=== PATIENT | female | born 1990 | race Caucasian/White ===

== ENCOUNTER 2017-11-09 05:46 | Observation (INO) | payer OTHER ==
[~2017-11-09 05:46] MED LIST: ESTROGENS, CONJ VAGINAL CREAM 30GM TUBE.; LIDOCAINE 1%/EPI 1:100,000 20 ML VIAL.; METHYLENE BLUE 1% 10 ML VIAL.; SURGICEL HEMOSTAT 4X8 EACH.
[2017-11-09] MEDS: IV RINGERS,LACTATED 1000ML 1,000 ML IV ×2 (06:33→10:39)
[2017-11-09 06:56] LABS: ADD MAN DIFF? NO
[2017-11-09 06:57] LABS: BASO % 1 % (0-3); EOS % 0 % (0-3); HEMATOCRIT 42.2 % (36.0-47.0); HEMOGLOBIN 14.3 g/dL (12.0-15.5); LYMPH # 1.4 x10^3/uL (1.0-4.8); LYMPH % 34 % (24-48); MEAN CORPUSCULAR HEMOGLOBIN 29 pg (25-35); MEAN CORPUSCULAR HGB CONC 34 g/dL (31-37); MEAN CORPUSCULAR VOLUME 84 fL (79-100); MONO # 0.3 x10^3/uL (0.0-1.1); MONO % 7 % (0-9); NEUT # 2.5 x10^3uL (1.8-7.7); NEUT % 59 % (31-73); PLATELET COUNT 148 x10^3/uL (140-400); RED BLOOD COUNT 5.02 x10^6/uL (3.50-5.40); RED CELL DISTRIBUTION WIDTH 14.3 % (11.5-14.5); WHITE BLOOD COUNT 4.3 x10^3/uL (4.0-11.0)
[2017-11-09] MEDS ORDERED: fentaNYL PF VIAL 100 MCG/2 ML VIAL IV (07:00)
[2017-11-09] MEDS ORDERED: LIDOCAINE 1% PF 2 ML VIAL. ID (07:00)
[2017-11-09] MEDS ORDERED: MORPHINE SULFATE 4 MG/ML DISP.SYRIN. IV (07:00)
[2017-11-09] MEDS ORDERED: SCOPOLAMINE 1.5MG PATCH. TD ×2 (07:08→07:15)
[2017-11-09] MEDS ORDERED: SEVOFLURANE > 120 MINUTES. IH (07:26)
[2017-11-09] MEDS ORDERED: GLYCOPYRROLATE 1 MG/5 ML VIAL. (07:27)
[2017-11-09] MEDS ORDERED: NEOSTIGMINE METHYLSULFATE 5 MG/5 ML SYRINGE. (07:27)
[2017-11-09] MEDS ORDERED: ROCURONIUM 50 MG/5 ML VIAL. ×2 (07:27→09:04)
[2017-11-09] MEDS ORDERED: fentaNYL PF VIAL 100 MCG/2 ML VIAL ×3 (07:27→10:11)
[2017-11-09] MEDS ORDERED: MIDAZOLAM HCL/PF 2 MG/2 ML VIAL. (07:27)
[2017-11-09] MEDS ORDERED: KETOROLAC 30 MG/ML INJ FOR OR. INJ (07:28)
[2017-11-09] MEDS ORDERED: LIDOCAINE 2% PF Vial for OR 5 ML VIAL. (07:28)
[2017-11-09] MEDS ORDERED: DEXAMETHASONE SOD PHOS 20 MG/5 ML VIAL. (07:28)
[2017-11-09] MEDS ORDERED: ONDANSETRON PF 4 MG/2 ML VIAL. (07:28)
[2017-11-09] MEDS ORDERED: PROPOFOL 20 ML IV (07:28)
[2017-11-09 08:00] LABS: NEG OBC UR NEG; POS OBC UR POS; U PREG PATIENT NEGATIVE (NEG)
[2017-11-09] MEDS: BUPIVACAINE-EPI 0.25%-1:200000 50 ML VIAL. (08:49)
[2017-11-09] MEDS ORDERED: 0.9 % SODIUM CHLORIDE 10 ML DISP.SYRIN. IV (10:00)
[2017-11-09] MEDS ORDERED: diphenhydrAMINE HCL 25 MG CAPSULE PO (10:00)
[2017-11-09] MEDS ORDERED: DEXTROSE 50% 25 GM / 50ML DISP.SYRIN. IV (10:00)
[2017-11-09] MEDS ORDERED: diphenhydrAMINE 50 MG/ML VIAL IV (10:00)
[2017-11-09] MEDS ORDERED: PROCHLORPERAZINE 10 MG/2 ML VIAL. IV (10:00)
[2017-11-09] MEDS ORDERED: ZOLPIDEM 5 MG TABLET. PO (10:00)
[2017-11-09] MEDS ORDERED: CALCIUM CARBONATE 500 MG TAB.CHEW PO (10:00)
[2017-11-09] MEDS ORDERED: PROCHLORPERAZINE 10 MG/2 ML VIAL. (10:12)
[2017-11-09] MEDS: PROCHLORPERAZINE 10 MG/2 ML VIAL. IV (10:25)
[2017-11-09] MEDS: fentaNYL PF VIAL 100 MCG/2 ML VIAL IV ×2 (10:27→10:40)
[2017-11-09] MEDS: GABAPENTIN 300 MG CAPSULE. PO ×4 (12:00→22:00)
[2017-11-09] MEDS: CALCIUM CARBONATE 500 MG TABLET PO (12:00)
[2017-11-09] MEDS ORDERED: ceFAZolin 2GM PREMIX 2 GM/50 ML BAG IV (12:00)
[2017-11-09] MEDS: SIMETHICONE 80 MG TAB.CHEW PO (12:04)
[2017-11-09] MEDS: KETOROLAC 30 MG/ML INJ. IV (12:05)
[2017-11-09] MEDS: VENLAFAXINE XR 37.5 MG CAP.ER.24H. PO (12:49)
[2017-11-09] MEDS: oxyCODONE/APAP 5/325 1 TAB TABLET PO ×2 (12:51→17:33)
[2017-11-09] MEDS: ALPRAZolam 0.5 MG TABLET PO (15:13)
[2017-11-09] MEDS: TOPIRAMATE 100 MG TABLET. PO (21:01)
[2017-11-09] MEDS: traZODone 50 MG TABLET. PO (21:01)
[2017-11-10] MEDS: oxyCODONE/APAP 5/325 1 TAB TABLET PO ×2 (00:34→05:52)
[2017-11-10] MEDS: ONDANSETRON PF 4 MG/2 ML VIAL. IV ×2 (04:31→14:33)
[2017-11-10 05:23] LABS: ADD MAN DIFF? NO
[2017-11-10 05:33] LABS: BASO % 0 % (0-3); EOS % 0 % (0-3); HEMATOCRIT 37.8 % (36.0-47.0); HEMOGLOBIN 12.9 g/dL (12.0-15.5); LYMPH % 26 % (24-48); MEAN CORPUSCULAR HEMOGLOBIN 29 pg (25-35); MEAN CORPUSCULAR HGB CONC 34 g/dL (31-37); MEAN CORPUSCULAR VOLUME 85 fL (79-100); MONO # 0.7 x10^3/uL (0.0-1.1); MONO % 9 % (0-9); NEUT # 5.1 x10^3uL (1.8-7.7); NEUT % 65 % (31-73); PLATELET COUNT 138 x10^3/uL (140-400); RED BLOOD COUNT 4.44 x10^6/uL (3.50-5.40); RED CELL DISTRIBUTION WIDTH 14.3 % (11.5-14.5); WHITE BLOOD COUNT 7.8 x10^3/uL (4.0-11.0)
[2017-11-10] MEDS: GABAPENTIN 300 MG CAPSULE. PO ×2 (05:53→13:48)
[2017-11-10] MEDS: SIMETHICONE 80 MG TAB.CHEW PO (08:05)
[2017-11-10] MEDS: VENLAFAXINE XR 37.5 MG CAP.ER.24H. PO (08:06)
[2017-11-10] MEDS: CALCIUM CARBONATE 500 MG TABLET PO (08:06)
[2017-11-10] MEDS: IBUPROFEN 800 MG TABLET. PO (14:33)
== END 2017-11-10 19:08 | disposition home or self-care (01) ==
LOC: SURG 05:46 → 3 NORTH 09:58
DX: N85.2 Hypertrophy of uterus (principal); N94.6 Dysmenorrhea, unspecified; N92.0 Excessive and frequent menstruation with regular cycle
CPT/HCPCS: 36415; 81025; 85025; 86850; 86900; 86901; 88307; 96374; 96375; 96376; A7015; G0378; G0379; J0690; J0780; J1100; J1885; J2250; J2405; J2704; J2710; J3010; J3490; J7030; J7120; Q9968

== ENCOUNTER → 2018-02-08 | Day surgery (SDC) | payer OTHER ==
[~2018-02-08] MED LIST changes: +DEXAMETHASONE SOD PHOS 20 MG/5 ML VIAL.; -ESTROGENS, CONJ VAGINAL CREAM 30GM TUBE.; +FAMOTIDINE 20 MG/2 ML VIAL; +FERRIC SUBSULFATE 8 ML SOL.W.APPL TP; +GLYCOPYRROLATE 1 MG/5 ML VIAL.; +LIDOCAINE 1% PF 2 ML VIAL. ID; -LIDOCAINE 1%/EPI 1:100,000 20 ML VIAL.; +LIDOCAINE 2% PF Vial for OR 5 ML VIAL.; +LIDOCAINE 2%/EPI 1:100,000 20 ML VIAL.; -METHYLENE BLUE 1% 10 ML VIAL.; +MIDAZOLAM HCL/PF 2 MG/2 ML VIAL.; +MORPHINE SULFATE 2 MG/ML DISP.SYRIN. IV; +ONDANSETRON PF 4 MG/2 ML VIAL.; +ONDANSETRON PF 4 MG/2 ML VIAL. IV; +PROCHLORPERAZINE 10 MG/2 ML VIAL. IV; +PROPOFOL 20 ML IV; +SCOPOLAMINE 1.5MG PATCH. TD; -SURGICEL HEMOSTAT 4X8 EACH.; +ceFAZolin 2GM PREMIX 2 GM/50 ML BAG IV; +fentaNYL PF VIAL 100 MCG/2 ML VIAL; +fentaNYL PF VIAL 100 MCG/2 ML VIAL IV; +oxyCODONE/APAP 5/325 1 TAB TABLET PO
[2018-02-08] MEDS: SCOPOLAMINE 1.5MG PATCH. TD (08:42)
[2018-02-08] MEDS: IV RINGERS,LACTATED 1000ML 1,000 ML IV (08:43)
[2018-02-08] MEDS: LIDOCAINE 1%/EPI 1:100,000 20 ML VIAL. INJ (13:17)
[2018-02-08] MEDS: fentaNYL PF VIAL 100 MCG/2 ML VIAL IV (14:17)
[2018-02-08] MEDS: oxyCODONE/APAP 5/325 1 TAB TABLET PO (14:33)
== END ==
LOC: SURG 08:19
DX: N94.19 Other specified dyspareunia (principal); K21.9 Gastro-esophageal reflux disease without esophagitis; F41.9 Anxiety disorder, unspecified; F32.9 Major depressive disorder, single episode, unspecified; N94.819 Vulvodynia, unspecified; E66.9 Obesity, unspecified; Z68.33 Body mass index [BMI] 33.0-33.9, adult; Z90.710 Acquired absence of both cervix and uterus; Z72.89 Other problems related to lifestyle; Z88.1 Allergy status to other antibiotic agents; Z91.018 Allergy to other foods; Z79.899 Other long term (current) drug therapy; Z98.890 Other specified postprocedural states; Z83.3 Family history of diabetes mellitus; Z82.49 Family history of ischemic heart disease and other diseases of the circulatory system; Z82.3 Family history of stroke; Z80.9 Family history of malignant neoplasm, unspecified
CPT/HCPCS: 56620; 88305; A7015; J0690; J1100; J2001; J2250; J2405; J2704; J3010; J3490; J7120; S0028

== ENCOUNTER 2018-02-14 20:57 | Emergency (ER) | payer OTHER ==
[2018-02-14] MEDS: KETOROLAC 60 MG/2 ML INJ. IM (21:43)
== END 2018-02-14 22:09 | disposition home or self-care (01) ==
LOC: ER 20:57
DX: G89.18 Other acute postprocedural pain (principal); Z90.6 Acquired absence of other parts of urinary tract; Z88.1 Allergy status to other antibiotic agents; Z91.018 Allergy to other foods
CPT/HCPCS: 96372; 99283; J1885

== ENCOUNTER 2018-08-09 06:11 | Observation (INO) | payer OTHER ==
[~2018-08-09] VITALS: Ht 167.6 cm; Wt 90.3 kg
[2018-08-09] VITALS (8 sets, daily range): BP systolic 92–110; BP diastolic 60–73
[~2018-08-09 06:11] MED LIST changes: +ALPR0.5T PO; +CALC500T30 PO; -DEXAMETHASONE SOD PHOS 20 MG/5 ML VIAL.; +DOCU-109 PO; -FAMOTIDINE 20 MG/2 ML VIAL; -FERRIC SUBSULFATE 8 ML SOL.W.APPL TP; +GABA-585 PO; +GABA300C18 PO; -GLYCOPYRROLATE 1 MG/5 ML VIAL.; +IBUP800T19 PO; -LIDOCAINE 1% PF 2 ML VIAL. ID; -LIDOCAINE 2% PF Vial for OR 5 ML VIAL.; -LIDOCAINE 2%/EPI 1:100,000 20 ML VIAL.; -MIDAZOLAM HCL/PF 2 MG/2 ML VIAL.; -MORPHINE SULFATE 2 MG/ML DISP.SYRIN. IV; +ONDA8TAB12 PO; -ONDANSETRON PF 4 MG/2 ML VIAL.; -ONDANSETRON PF 4 MG/2 ML VIAL. IV; +OXYC1TAB15 PO; +OXYC1TAB7 PO; -PROCHLORPERAZINE 10 MG/2 ML VIAL. IV; -PROPOFOL 20 ML IV; -SCOPOLAMINE 1.5MG PATCH. TD; +TOPI200T25 PO; +TRAZ-85 PO; +TRAZ150T49 PO; +VENL150C PO; +VENL75CA PO; -ceFAZolin 2GM PREMIX 2 GM/50 ML BAG IV; -fentaNYL PF VIAL 100 MCG/2 ML VIAL; -fentaNYL PF VIAL 100 MCG/2 ML VIAL IV; -oxyCODONE/APAP 5/325 1 TAB TABLET PO
[2018-08-09] MEDS ORDERED: LIDOCAINE 1%/EPI 1:100,000 20 ML VIAL. ONE (06:59)
[2018-08-09] MEDS ORDERED: PROCHLORPERAZINE 10 MG/2 ML VIAL. IV PRN ×2 (07:00→09:45)
[2018-08-09] MEDS ORDERED: fentaNYL PF VIAL 100 MCG/2 ML VIAL IV PRN (07:00)
[2018-08-09] MEDS ORDERED: HYDROmorphone 2 MG/ML VIAL IV PRN (07:00)
[2018-08-09] MEDS ORDERED: LIDOCAINE 1% PF 2 ML VIAL. ID PRN (07:00)
[2018-08-09] MEDS ORDERED: IV RINGERS,LACTATED 1000ML 1,000 ML IV SCH ×2 (07:00→23:47)
[2018-08-09] MEDS ORDERED: ONDANSETRON PF 4 MG/2 ML VIAL. IV PRN (07:00)
[2018-08-09] MEDS ORDERED: MORPHINE SULFATE 4 MG/ML VIAL. IV PRN (07:00)
[2018-08-09 07:12] LABS: BASO % 0 % (0-3); EOS % 0 % (0-3); HEMATOCRIT 39.8 % (36.0-47.0); LYMPH % 22 % (24-48); MEAN CORPUSCULAR HEMOGLOBIN 30 pg (25-35); MEAN CORPUSCULAR HGB CONC 35 g/dL (31-37); MEAN CORPUSCULAR VOLUME 86 fL (79-100); MONO # 0.3 x10^3/uL (0.0-1.1); MONO % 7 % (0-9); NEUT # 3.4 x10^3uL (1.8-7.7); NEUT % 71 % (31-73); PLATELET COUNT 108 x10^3/uL (140-400); RED BLOOD COUNT 4.65 x10^6/uL (3.50-5.40); RED CELL DISTRIBUTION WIDTH 14.5 % (11.5-14.5); WHITE BLOOD COUNT 4.8 x10^3/uL (4.0-11.0)
[2018-08-09] MEDS ORDERED: PROPOFOL 20 ML IV ONE ×2 (07:15→22:37)
[2018-08-09] MEDS ORDERED: fentaNYL PF VIAL 100 MCG/2 ML VIAL ONE ×3 (07:15→22:37)
[2018-08-09] MEDS ORDERED: KETOROLAC 30 MG/ML INJ FOR OR. INJ ONE (07:16)
[2018-08-09] MEDS ORDERED: DEXAMETHASONE SOD PHOS 20 MG/5 ML VIAL. ONE ×2 (07:16→22:41)
[2018-08-09] MEDS ORDERED: ONDANSETRON PF 4 MG/2 ML VIAL. ONE ×2 (07:16→22:41)
[2018-08-09] MEDS ORDERED: FAMOTIDINE 20 MG/2 ML VIAL ONE (07:16)
[2018-08-09] MEDS ORDERED: SCOPOLAMINE 1.5MG PATCH. TD ONE (07:30)
[2018-08-09] MEDS ORDERED: MIDAZOLAM HCL/PF 2 MG/2 ML VIAL. ONE (07:49)
--- NOTE | 2018-08-09 09:32 | PDOC ---
BRIEF OPERATIVE NOTE Date: Aug 09, 2018 Pre-Op Diagnosis 1. Cystocele 2. Rectocele Post-Op Diagnosis Same Procedure Performed Anterior and Posterior Colporrhaphy Surgeon Dr. Cho Anesthesia Type: General Blood Loss 50 ml Specimens Obtained none Findings cystocele and rectocele Complications none Operative Note see dictation LUCAS CHO Jr, MD Aug 09, 2018 09:32
[2018-08-09] MEDS ORDERED: CALCIUM CARBONATE 500 MG TAB.CHEW PO PRN (09:45)
[2018-08-09] MEDS ORDERED: ZOLPIDEM 5 MG TABLET. PO PRN (09:45)
[2018-08-09] MEDS ORDERED: 0.9 % SODIUM CHLORIDE 10 ML DISP.SYRIN. IV PRN (09:45)
[2018-08-09] MEDS ORDERED: DEXTROSE 50% 25 GM / 50ML DISP.SYRIN. IV PRN (09:45)
[2018-08-09] MEDS ORDERED: diphenhydrAMINE HCL 25 MG CAPSULE PO PRN (09:45)
[2018-08-09] MEDS ORDERED: MEPERIDINE PF 25 MG/ML VIAL. ONE (09:46)
--- NOTE | 2018-08-09 09:46 | OP ---
DATE OF SURGERY: PREOPERATIVE DIAGNOSES: 1. Cystocele. 2. Rectocele. POSTOPERATIVE DIAGNOSES: 1. Cystocele. 2. Rectocele. PROCEDURE: Anterior and posterior colporrhaphy. SURGEON: Lucas Cho MD ANESTHESIA: GETA. ESTIMATED BLOOD LOSS: 50 mL. COMPLICATIONS: None. FINDINGS: 1. Cystocele. 2. Rectocele. SUMMARY: A 28-year-old female who has symptomatic cystocele and rectocele, requiring anterior and posterior repair. She was counseled on the risks, benefits and expectations and voiced clear understanding to proceed. DESCRIPTION OF PROCEDURE: The patient was taken to the surgery suite and placed in dorsal lithotomy position. She was prepped with Betadine solution and draped in sterile fashion. After adequate anesthesia, weighted speculum was placed. Allis clamp was placed about 3 cm below the urethral orifice. Second Allis clamp was placed about 3 cm below the first Allis clamp at the midline of the anterior vaginal wall. 1% lidocaine with epinephrine was injected in linear fashion between the 2 Allis clamps. Scalpel was utilized to make a vertical incision between the 2 Allis clamps. The vaginal mucosa was then dissected free of the pubovesical fascia using sharp dissection with Metzenbaum scissors as well as blunt dissection with a moist Ray-Melissa. The pubovesical fascia was reapproximated using 2-0 Vicryl suture in an interrupted fashion. The excess anterior vaginal wall mucosa was excised with Metzenbaum scissors. The remaining anterior vaginal wall mucosa was reapproximated using 2-0 Vicryl suture in a zlhysv-oe-[id number] manner. A finger was placed rectally to identify the rectocele. Long Allis clamp was then placed about 4 cm into the vaginal vault on the midline of the posterior vaginal wall mucosa. Two Allis clamps were then placed on the posterior fourchette in which 1% lidocaine with epinephrine was injected between the 2 Allis clamps and also along the midline of the posterior vaginal wall mucosa. Scalpel was utilized to make a transverse incision between 2 Allis clamps at the level of the posterior fourchette. Metzenbaum scissor was then utilized to undermine the posterior vaginal mucosa up to 4 cm into the vaginal vault. This was incised at the midline with the Metzenbaum scissors. The posterior vaginal mucosa was then dissected away from the rectovaginal fascia using sharp dissection with Metzenbaum scissors along with moist Ray-Melissa. The rectovaginal fascia was reapproximated using a 2-0 Vicryl suture in interrupted fashion. One finger was placed rectally to ensure no injury to the rectal lumen. The excess posterior vaginal mucosa was excised with Metzenbaum scissors. The remaining posterior vaginal wall mucosa was reapproximated using 2-0 Vicryl suture in an interrupted semi yaqdpe-oy-dgsuj manner as well as interrupted fashion. Moist vaginal packing was placed. The patient tolerated the procedure well and was taken to recovery room in stable condition. Sponge and needle count correct x 3. LUCAS CHO MD DR: JONN/taty JOB#: [id number] / [id number]
[2018-08-09] MEDS: fentaNYL PF VIAL 100 MCG/2 ML VIAL IV PRN ×2 (09:51→09:59)
[2018-08-09] MEDS ORDERED: MEPERIDINE PF 25 MG/ML VIAL. IV ONE (10:00)
[2018-08-09] MEDS ORDERED: MORPHINE SULFATE 4 MG/ML VIAL. ONE (10:01)
[2018-08-09] MEDS ORDERED: OPIUM/BELLADONNA 30/16.2MG SUPP.RECT. PR PRN (11:00)
[2018-08-09] MEDS: oxyCODONE/APAP 5/325 1 TAB TABLET PO PRN ×2 (11:07→15:32)
[2018-08-09] MEDS: KETOROLAC 30 MG/ML VIAL. IV PRN (21:18)
[2018-08-09] MEDS: SIMETHICONE 80 MG TAB.CHEW PO PRN (21:18)
[2018-08-09] MEDS: GABAPENTIN 300 MG CAPSULE. PO SCH (21:19)
[2018-08-09 22:28] LABS: HEMATOCRIT 33.2 % (36.0-47.0); HEMOGLOBIN 11.8 g/dL (12.0-15.5)
--- NOTE | 2018-08-09 22:30 | NUR ---
Dr. Cho in 3N vaginal exam room to exam pt's active bright red vaginal bleeding. Dr. Cho performed a sterile speculum exam and identified active bleeding.Dr. Cho used two large cotton swaps to help during vaginal exam. Bright red blood noted on swaps. Dr. Cho used sterile gauges with sterile normal saline to pack in vagina. Dr. Cho requested to call in OR team.
--- NOTE | 2018-08-09 22:31 | PDOC ---
SURGICAL PROGRESS NOTE Subjective Pt. feeling flushed and anxious. Vaginal packing was removed for patient comfort this evening. SHe then had moderate amount of bleeding that filled 2 chucks pads and bright red. I was notified and immediately proceeded to hospital to evaluate the patient in [employer] procedure room. Vital Signs Vital Signs Date Time Temp Pulse Resp B/P (MAP) Pulse Ox O2 Delivery O2 Flow Rate FiO2 08/09/18 19:59 Mask 10 08/09/18 14:30 74 14 99/64 (76) 97 08/09/18 12:20 98.1 98.1 General: Alert, Oriented X3, Cooperative HEENT: Atraumatic Lungs: Clear to auscultation Heart: Regular rate Abdomen: Normal bowel sounds, Soft, No tenderness, Other (Speculum exam: silver dollar size blood clot with bright red blood after removal of blood clot. Moist gauze packed vaginally. ) Psych/Mental Status: Mental status NL Labs Laboratory Tests Test 08/09/18 06:43 White Blood Count 4.8 x10^3/uL (4.0-11.0) Red Blood Count 4.65 x10^6/uL (3.50-5.40) Hemoglobin 14.0 g/dL (12.0-15.5) Hematocrit 39.8 % (36.0-47.0) Mean Corpuscular Volume 86 fL (79-100) Mean Corpuscular Hemoglobin 30 pg (25-35) Mean Corpuscular Hemoglobin Concent 35 g/dL (31-37) Red Cell Distribution Width 14.5 % (11.5-14.5) Platelet Count 108 x10^3/uL (140-400) Neutrophils (%) (Auto) 71 % (31-73) Lymphocytes (%) (Auto) 22 % (24-48) Monocytes (%) (Auto) 7 % (0-9) Eosinophils (%) (Auto) 0 % (0-3) Basophils (%) (Auto) 0 % (0-3) Neutrophils # (Auto) 3.4 x10^3uL (1.8-7.7) Lymphocytes # (Auto) 1.0 x10^3/uL (1.0-4.8) Monocytes # (Auto) 0.3 x10^3/uL (0.0-1.1) Eosinophils # (Auto) 0.0 x10^3/uL (0.0-0.7) Basophils # (Auto) 0.0 x10^3/uL (0.0-0.2) Laboratory Tests Test 08/09/18 06:43 White Blood Count 4.8 x10^3/uL (4.0-11.0) Red Blood Count 4.65 x10^6/uL (3.50-5.40) Hemoglobin 14.0 g/dL (12.0-15.5) Hematocrit 39.8 % (36.0-47.0) Mean Corpuscular Volume 86 fL (79-100) Mean Corpuscular Hemoglobin 30 pg (25-35) Mean Corpuscular Hemoglobin Concent 35 g/dL (31-37) Red Cell Distribution Width 14.5 % (11.5-14.5) Platelet Count 108 x10^3/uL (140-400) Neutrophils (%) (Auto) 71 % (31-73) Lymphocytes (%) (Auto) 22 % (24-48) Monocytes (%) (Auto) 7 % (0-9) Eosinophils (%) (Auto) 0 % (0-3) Basophils (%) (Auto) 0 % (0-3) Neutrophils # (Auto) 3.4 x10^3uL (1.8-7.7) Lymphocytes # (Auto) 1.0 x10^3/uL (1.0-4.8) Monocytes # (Auto) 0.3 x10^3/uL (0.0-1.1) Eosinophils # (Auto) 0.0 x10^3/uL (0.0-0.7) Basophils # (Auto) 0.0 x10^3/uL (0.0-0.2) Assessment/Plan A: POD#0 s/p A& P Repair Post op bleeding P: Will obtain stat H&H and proceed to OR for EUA and repair of vaginal laceration. LUCAS GARCES Jr, MD Aug 09, 2018 22:31
[2018-08-09] MEDS ORDERED: SUCCINYLCHOLINE 200 MG/10 ML VIAL. ONE (22:37)
[2018-08-09] MEDS ORDERED: LIDOCAINE 2% PF Vial for OR 5 ML VIAL. ONE (22:37)
--- NOTE | 2018-08-09 22:41 | NUR ---
Removed vagina packing @ 2130. was mostly saturated. Within 5 minutes pt had blood pooling on pad. Changed again and vitals were normal. Called Dr. Cho and he said he would be right here and wanted pt in exam room. Once in exam room Marquis deceided pt needed to go to surgery, called nursing assembly line supervisor to call OR team in. Just took pt down to OR.
[2018-08-09] MEDS ORDERED: BUPIVAC MPF-EPI 0.5%-1:200000 30 ML VIAL. ONE (23:07)
[2018-08-09] MEDS ORDERED: ePHEDrine PF IN SALINE 50 MG/5 ML DISP.SYRIN IV ONE (23:35)
[2018-08-09] MEDS ORDERED: SEVOFLURANE 16 TO 30 MINUTES. IH ONE (23:47)
--- NOTE | 2018-08-09 23:55 | PDOC ---
BRIEF OPERATIVE NOTE Date: Aug 09, 2018 Pre-Op Diagnosis vaginal wound separation with bleeding Post-Op Diagnosis Same Procedure Performed Posterior vaginal wall repair Surgeon Dr. Cho Anesthesia Type: General Blood Loss 25 ml ( pt. loss 200 ml prior to surgery) Specimens Obtained none Findings posterior vaginal wall wound separation; anterior vaginal incision site intact Complications none Operative Note see dictation LUCAS CHO Jr, MD Aug 09, 2018 23:55
[2018-08-10] MEDS ORDERED: MORPHINE SULFATE 2 MG/ML VIAL. IV PRN
[2018-08-10] MEDS ORDERED: HYDROmorphone 2 MG/ML VIAL IV PRN
[2018-08-10] MEDS ORDERED: ONDANSETRON PF 4 MG/2 ML VIAL. IV PRN
[2018-08-10] MEDS ORDERED: PROCHLORPERAZINE 10 MG/2 ML VIAL. IV PRN
[2018-08-10] MEDS ORDERED: fentaNYL PF VIAL 100 MCG/2 ML VIAL IV PRN ×2
[2018-08-10] MEDS ORDERED: LIDOCAINE 1% PF 2 ML VIAL. ID PRN
[2018-08-10 00:30] VITALS: BP 102/63
[2018-08-10] MEDS ORDERED: OPIUM/BELLADONNA 30/16.2MG SUPP.RECT. PR ONE ×2 (01:00→13:45)
[2018-08-10 01:01] VITALS: BP 100/63
--- NOTE | 2018-08-10 01:47 | OP ---
DATE OF SURGERY: PREOPERATIVE DIAGNOSES: Vaginal wound separation with bleeding. POSTOPERATIVE DIAGNOSES: Vaginal wound separation with bleeding. PROCEDURE: Posterior vaginal wall repair. SURGEON: Kaushik Cho MD ANESTHESIA: GETA. ESTIMATED BLOOD LOSS: 25 mL. The patient had lost about 200 mL prior to surgery. FINDINGS: Posterior vaginal wall wound separation, anterior vaginal incision site intact and hemostatic. COMPLICATIONS: None. SUMMARY: The patient was postop day 0, status post anterior and posterior repair. The patient was requesting vaginal packing to be removed. Once this was removed, nursing staff noticed about 200 mL of blood clot and slow active bleeding from the vaginal vault. I then proceeded to the hospital and evaluated the patient and procedure room, in which small amount of clot removed and the patient did have active bleeding at the posterior vaginal wall incision site and decision was made to return to surgery to repair the posterior vaginal wall where there was wound separation and bleeding. The patient was counseled on risks, benefits and expectations and voiced clear understanding to proceed. The patient was taken to surgery suite and placed in dorsal lithotomy position. She was prepped with Betadine solution and draped in sterile fashion. After adequate anesthesia, a weighted speculum and curved [place] placed vaginally. The incision sites, anterior, as well as posterior were reviewed. The anterior vaginal wall incision site was hemostatic and intact. The posterior vaginal wall incision site demonstrated a wound separation, in which 2-0 Vicryl sutures in an interrupted fashion were placed to reinforce the posterior vaginal incision site. It was then hemostatic. Moist vaginal packing was placed. The patient tolerated the procedure well and was taken to recovery room in stable condition. Sponge and needle count correct times 3. KAUSHIK CHO MD DR: JONN/taty JOB#: [id number] / [id number]
[2018-08-10] MEDS: KETOROLAC 30 MG/ML VIAL. IV PRN ×2 (03:22→09:34)
[2018-08-10 05:22] LABS: BASO % 0 % (0-3); EOS % 0 % (0-3); HEMATOCRIT 29.8 % (36.0-47.0); HEMOGLOBIN 10.4 g/dL (12.0-15.5); LYMPH # 0.4 x10^3/uL (1.0-4.8); LYMPH % 6 % (24-48); MEAN CORPUSCULAR HEMOGLOBIN 30 pg (25-35); MEAN CORPUSCULAR HGB CONC 35 g/dL (31-37); MEAN CORPUSCULAR VOLUME 86 fL (79-100); MONO # 0.1 x10^3/uL (0.0-1.1); MONO % 2 % (0-9); NEUT # 6.2 x10^3uL (1.8-7.7); NEUT % 92 % (31-73); PLATELET COUNT 110 x10^3/uL (140-400); RED BLOOD COUNT 3.47 x10^6/uL (3.50-5.40); RED CELL DISTRIBUTION WIDTH 14.4 % (11.5-14.5); WHITE BLOOD COUNT 6.7 x10^3/uL (4.0-11.0)
[2018-08-10 06:40] VITALS: BP 113/65
[2018-08-10 07:15] LABS: % LYMPHS 6 % (24-48); % MONOS 1 % (0-10); % SEGS 93 % (35-66); PLT ESTIMATE DECREASED (ADEQUATE)
[2018-08-10 07:16] LABS: ANISOCYTOSIS SLIGHT
[2018-08-10] MEDS: ONDANSETRON PF 4 MG/2 ML VIAL. IV PRN ×2 (07:41→18:04)
[2018-08-10 08:15] VITALS: BP 96/63
[2018-08-10] MEDS: SIMETHICONE 80 MG TAB.CHEW PO PRN ×2 (09:33→13:47)
[2018-08-10] MEDS: GABAPENTIN 300 MG CAPSULE. PO SCH ×3 (14:00→22:00)
--- NOTE | 2018-08-10 14:41 | PDOC ---
SURGICAL PROGRESS NOTE Subjective Pt. feeling fatigue and not ambulating in room yet. Pain controlled. She has decreased appetite. Vital Signs Vital Signs Date Time Temp Pulse Resp B/P (MAP) Pulse Ox O2 Delivery O2 Flow Rate FiO2 08/10/18 13:47 18 Room Air 08/10/18 08:15 98.0 72 96/63 (74) 100 98.0 08/10/18 00:10 10 I&O Intake and Output 08/10/18 07:01 Intake Total 2775 ml Output Total 3675 ml Balance -900 ml Intake Oral 1075 ml IV Total 1700 ml Output Urine Total 3600 ml Estimated Blood Loss 75 ml PATIENT HAS A [place]: Yes General: Alert, Oriented X3, Cooperative HEENT: Atraumatic Lungs: Clear to auscultation Heart: Regular rate Abdomen: Normal bowel sounds, Soft, No tenderness, Other (Vaginal packing removed with minimal saturation. No active bleeding or blood clot.) Psych/Mental Status: Mental status NL Labs Laboratory Tests Test 08/09/18 06:43 08/09/18 22:15 08/10/18 04:40 White Blood Count 4.8 x10^3/uL (4.0-11.0) 6.7 x10^3/uL (4.0-11.0) Red Blood Count 4.65 x10^6/uL (3.50-5.40) 3.47 x10^6/uL (3.50-5.40) Hemoglobin 14.0 g/dL (12.0-15.5) 11.8 g/dL (12.0-15.5) 10.4 g/dL (12.0-15.5) Hematocrit 39.8 % (36.0-47.0) 33.2 % (36.0-47.0) 29.8 % (36.0-47.0) Mean Corpuscular Volume 86 fL (79-100) 86 fL (79-100) Mean Corpuscular Hemoglobin 30 pg (25-35) 30 pg (25-35) Mean Corpuscular Hemoglobin Concent 35 g/dL (31-37) 36 g/dL (31-37) 35 g/dL (31-37) Red Cell Distribution Width 14.5 % (11.5-14.5) 14.4 % (11.5-14.5) Platelet Count 108 x10^3/uL (140-400) 110 x10^3/uL (140-400) Neutrophils (%) (Auto) 71 % (31-73) 92 % (31-73) Lymphocytes (%) (Auto) 22 % (24-48) 6 % (24-48) Monocytes (%) (Auto) 7 % (0-9) 2 % (0-9) Eosinophils (%) (Auto) 0 % (0-3) 0 % (0-3) Basophils (%) (Auto) 0 % (0-3) 0 % (0-3) Neutrophils # (Auto) 3.4 x10^3uL (1.8-7.7) 6.2 x10^3uL (1.8-7.7) Lymphocytes # (Auto) 1.0 x10^3/uL (1.0-4.8) 0.4 x10^3/uL (1.0-4.8) Monocytes # (Auto) 0.3 x10^3/uL (0.0-1.1) 0.1 x10^3/uL (0.0-1.1) Eosinophils # (Auto) 0.0 x10^3/uL (0.0-0.7) 0.0 x10^3/uL (0.0-0.7) Basophils # (Auto) 0.0 x10^3/uL (0.0-0.2) 0.0 x10^3/uL (0.0-0.2) Segmented Neutrophils % 93 % (35-66) Lymphocytes % 6 % (24-48) Monocytes % 1 % (0-10) Platelet Estimate Decreased (ADEQUATE) Anisocytosis Slight Laboratory Tests Test 08/09/18 22:15 08/10/18 04:40 Hemoglobin 11.8 g/dL (12.0-15.5) 10.4 g/dL (12.0-15.5) Hematocrit 33.2 % (36.0-47.0) 29.8 % (36.0-47.0) Mean Corpuscular Hemoglobin Concent 36 g/dL (31-37) 35 g/dL (31-37) White Blood Count 6.7 x10^3/uL (4.0-11.0) Red Blood Count 3.47 x10^6/uL (3.50-5.40) Mean Corpuscular Volume 86 fL (79-100) Mean Corpuscular Hemoglobin 30 pg (25-35) Red Cell Distribution Width 14.4 % (11.5-14.5) Platelet Count 110 x10^3/uL (140-400) Neutrophils (%) (Auto) 92 % (31-73) Lymphocytes (%) (Auto) 6 % (24-48) Monocytes (%) (Auto) 2 % (0-9) Eosinophils (%) (Auto) 0 % (0-3) Basophils (%) (Auto) 0 % (0-3) Neutrophils # (Auto) 6.2 x10^3uL (1.8-7.7) Lymphocytes # (Auto) 0.4 x10^3/uL (1.0-4.8) Monocytes # (Auto) 0.1 x10^3/uL (0.0-1.1) Eosinophils # (Auto) 0.0 x10^3/uL (0.0-0.7) Basophils # (Auto) 0.0 x10^3/uL (0.0-0.2) Segmented Neutrophils % 93 % (35-66) Lymphocytes % 6 % (24-48) Monocytes % 1 % (0-10) Platelet Estimate Decreased (ADEQUATE) Anisocytosis Slight Assessment/Plan POD#1 s/p A&P Repair and vaginal wound repair P: Continue post op care. Ambulation this evening. D/c home tomorrow. LUCAS GARCES Jr, MD Aug 10, 2018 14:41
[2018-08-10] MEDS: oxyCODONE/APAP 5/325 1 TAB TABLET PO PRN (15:05)
[2018-08-10 18:21] VITALS: BP 95/60
[2018-08-10 20:00] VITALS: BP 95/48
[2018-08-10] MEDS ORDERED: traZODone 100 MG TABLET. PO SCH (21:00)
[2018-08-11 04:30] VITALS: BP 88/57
[2018-08-11] MEDS: GABAPENTIN 300 MG CAPSULE. PO SCH (04:44)
[2018-08-11] MEDS ORDERED: NAPR-514 PO (08:31)
[2018-08-11] MEDS ORDERED: OXYC1TAB15 PO (08:31)
[2018-08-11] MEDS ORDERED: MAGNESIUM HYDROXIDE 2,400 MG/30 ML ORAL.SUSP. PO PRN (09:00)
--- NOTE | 2018-08-11 09:31 | DS ---
DATE OF DISCHARGE: 08/10/2018 ADMITTING DIAGNOSIS: Pelvic relaxation. DISCHARGE DIAGNOSES: Pelvic relaxation status post anterior, posterior repair and second surgery for vaginal bleeding. HOSPITAL COURSE: Complicated by the patient having some vaginal bleeding after removal of packing, which required another procedure, which is noted in the chart. The patient after this procedure postoperatively remained stable. Vaginal bleeding had ceased. Her initial postop hemoglobin was 11.8; it went down 10.4 and stabilized. On the day of discharge, the patient was stable, ambulating halls without assistance, was afebrile, normotensive. T-max was 98.1 on 08/10/2018, on day of discharge is 97.4, pulse is 87, respirations 14, blood pressure is 88/57. DISPOSITION: The patient was discharged to home in stable condition. Repeat discharge instructions were given. The patient to follow up with Dr. Cho in 1 week. DISCHARGE MEDICATIONS: The patient was discharged home on Percocet and naproxen. ÓSCAR SHERIDAN MD DR: CAREN/taty JOB#: [id number] / [id number]
== END 2018-08-11 10:48 | disposition home or self-care (01) ==
LOC: SURG 06:11 → 3 NORTH 09:55
PROVIDERS: ADMIT Obstetrics & Gynecology; ATTEND Obstetrics & Gynecology
DX: N81.10 Cystocele, unspecified (principal); N81.6 Rectocele; N93.9 Abnormal uterine and vaginal bleeding, unspecified
CPT/HCPCS: 36415; 57260; 85007; 85014; 85018; 85025; 86850; 86900; 86901; 90471; 90756; 96374; 96375; 96376; A7015; G0378; G0379; J0330; J0696; J0780; J1100; J1885; J2001; J2175; J2250; J2270; J2405; J2704; J3010; J3490; J7120; Q0163; Q2035